=== PATIENT | male | born 1990 | race Caucasian/White ===

== ENCOUNTER → 2021-10-25 22:24 | Outpatient (REF) | payer MEDICAID, SELFPAY | LOC: HO.SL 22:24 | PROVIDERS: Visit Provider Registered Nurse | DX: G47.33 Obstructive sleep apnea (adult) (pediatric) (principal); R06.83 Snoring | CPT/HCPCS: 95811 ==

== ENCOUNTER → 2021-11-03 13:00 | Outpatient (BNVA) | payer MEDICAID, SELFPAY | PROVIDERS: PCP Registered Nurse; Visit Provider Nurse Practitioner Family | DX: G47.33 Obstructive sleep apnea (adult) (pediatric) (principal) | CPT/HCPCS: 99202 ==

== ENCOUNTER 2022-01-26 19:56 | Emergency (ER) | payer MEDICAID, SELFPAY ==
--- NOTE | 2022-01-26 | ECG_ITS ---
Test Reason : SEIZURES Blood Pressure : / mmHG Vent. Rate : 083 BPM Atrial Rate : 083 BPM P-R Int : 154 ms QRS Dur : 118 ms QT Int : 370 ms P-R-T Axes : 073 037 041 degrees QTc Int : 434 ms Normal sinus rhythm Non-specific intra-ventricular conduction delay Borderline ECG No previous ECGs available Referred By: Generic ED Physician Electronically Signed By:SHAYY JEAN MD
--- NOTE | ~2022-01-26 | XR_ITS ---
EXAMINATION: XR CHEST CLINICAL INFORMATION: Chest pain COMPARISON: None TECHNIQUE: Frontal view of the chest was obtained. FINDINGS: No significant abnormality is noted involving the heart, lungs, mediastinum, bony thorax or soft tissues. XR/XR chest 1V IMPRESSION: Unremarkable examination.
[2022-01-26 20:08] VITALS: BP 157/94; PULSE 96; RESP 20; TEMP 37.1; O2SAT 99; BMI 28.0
--- NOTE | 2022-01-26 20:19 | PC.NURSE ---
configuration management consultant Mayelin notified that pt. feels as though he's about to have a seizure. Taking pt. back to ED bed 14 and this RN putting an order in for EKG now
--- NOTE | 2022-01-26 20:22 | PC.NURSE ---
escorted to ED Bed 14. changed into hospital attire. EKG being obtained at this time. family member at bedside.
--- NOTE | 2022-01-26 20:58 | ED_ITS ---
HPI - Arrhythmia/Palpitations General Chief Complaint: Arrhythmia/Palpitations Stated Complaint: Dizzy, heart racing, epilepsy symptoms?? Time Seen by Provider: 01/26/22 20:57 Source: patient and wood flooring specialist Mode of arrival: ambulatory Limitations: no limitations History of Present Illness HPI narrative: 31 yo male with hx of seizures on vimpat and trileptal (compliant), HTN - has seizures monthly notes he has palpitations and fatigue/dizziness before seizures. He has been feeling like this for 3 days without an event. He also had some palpitations and chest pain for 3 days. This has happened before. He has n ot had a seizure. Denies missing medications, sleep deprivations, ETOH abuse. MD complaint: rapid heart beat and palpitations Onset (ago): day(s) (3) Duration: intermittent Severity: mild Context: occurred during rest Associated symptoms: chest pain Related Data Home Medications Medication Instructions Recorded Confirmed blood pressure test kit-medium 11/03/21 chlorthalidone 25 mg tablet 25 mg PO DAILY 11/03/21 cholecalciferol (vitamin D3) 50 50 mcg PO DAILY 11/03/21 mcg (2,000 unit) capsule lacosamide 150 mg tablet (Vimpat) 150 mg PO BID 11/03/21 lisinopril 20 mg tablet 20 mg PO DAILY 11/03/21 lisinopril 20 1 tab PO DAILY 11/03/21 mg-hydrochlorothiazide 12.5 mg tablet naproxen 500 mg tablet,delayed 500 mg PO BID 11/03/21 release (EC-Naproxen) oxcarbazepine 600 mg tablet 900 mg PO BID 11/03/21 sertraline 100 mg tablet 100 mg PO DAILY 11/03/21 Allergies Allergy/AdvReac Type Severity Reaction Status Date / Time No Known Allergies Allergy Verified 11/03/21 13:07 Review of Systems Review of Systems: Constitutional : No Weight loss, No Fever, No Chills ENT/Mouth : No sore throat, No Rhinorrhea Eyes: No Eye Pain, No Swelling Cardiovascular : pos Chest Pain, no SOB, no Dyspnea on Exertion, No Orthopnea, No Edema, pos Palpitations Respiratory : No Cough, No Sputum Gastrointestinal : no Nausea, No Vomiting, No Diarrhea, No abdominal Pain, No Hematochezia, No Melena Genitourinary : No Dysuria, No Urinary Frequency Musculoskeletal : No joint pain, No Myalgias, No Joint Swelling Skin : No Skin Lesions, No rash Neuro : No Weakness, No Numbness, No Dizziness, No Headache Psych : No Anxiety/Panic, No Depression Heme/Lymph: No Bruising, No Lymphadenopathy Endocrine : No Polyuria, No Polydipsia All other systems reviewed and are negative [facility] Past Medical History Attestation statement: The following information was validated with the patient. Medical History HTN (hypertension) CARON (obstructive sleep apnea) Seizures Surgical History No pertinent past surgical history Family History Family History (Updated 11/03/21 @ 13:12 by HAZEL Ngo) Mother Renal disease FH: cerebral aneurysm Sister Renal disease Maternal Grandmother Renal disease Diabetes mellitus Maternal Uncle Renal disease Father No problems noted. Social History Social History Household Members: Friend(s) Alcohol intake: never Patient Tobacco Use Status: Never used Tobacco Advance Directives: No Advance Directives Information Provided: No Current occupational status: unemployed Physical Exam Vital Signs: Vital Signs: Last Vital Signs Temp 98.7 F 01/26/22 20:08 Pulse 96 01/26/22 20:08 Resp 20 01/26/22 20:08 BP 157/94 H 01/26/22 20:08 Pulse Ox 99 01/26/22 20:08 O2 Del Method 01/26/22 20:08 BMI result Body Mass Index 28.0 Appearance: Alert. Oriented X3. No acute distress. Eyes: Pupils equal, round and reactive to light. ENT: Pharynx normal. Neck: Normal inspection. Neck supple. CVS: Normal heart rate and rhythm. Pulses normal. Respiratory: No respiratory distress. Breath sounds normal. Abdomen: Soft and -. Skin: Skin warm and dry. Normal skin color. Normal skin turgor. Extremities: No lower extremity edema. No calf ttp Neuro: Oriented X 3. No motor deficit. No sensory deficit. Course Course Course Narrative: workup negative at [facility] stable for DC feels better, no seizures while here MDM - Arrhythmia/Palpitations MDM Narrative Medical decision making narrative: 31 yo male with HTN, seizures here with chest pain, palpitations for 3 days, he is not in distress, appears comfortable - PERC negative, nonischemic EKG, obtain basic labs, PO ativan. Appears well no seizures recently. Atypical chest pain at this time - distal pulses intact doubt dissection. Lab Data Result diagrams: 01/26/22 21:50 01/26/22 21:50 Labs: Lab Results 01/26/22 01/26/22 01/26/22 Range/Units 21:50 21:50 21:50 WBC 10.0 (4.8-10.8) X10*3/uL RBC 4.92 (4.60-5.80) X10*6/uL Hgb 14.5 (14.0-18.0) g/dl Hct 43.1 (42.0-52.0) % MCV 87.6 (80.0-98.0) fL MCH 29.5 (27.0-33.0) pg MCHC 33.6 (31.0-36.0) g/dl RDW 12.9 (11.0-16.0) % Plt Count 244 (160-400) X10*3/uL MPV 10.8 (9.4-12.4) fL Immature Gran % (Auto) 0.2 (0.0-0.4) % Neut % (Auto) 68.7 (45-73) % Lymph % (Auto) 22.8 (20-40) % Power % (Auto) 7.6 (2-11) % Eos % (Auto) 0.3 (0-4) % Baso % (Auto) 0.4 (0-2) % Lymph # (Auto) 2.3 (1.2-4.9) X10*3/uL Power # (Auto) 0.8 (0.1-1.2) X10*3/uL Eos # (Auto) 0.0 (0.0-0.4) X10*3/uL Baso # (Auto) 0.0 (0.0-0.2) X10*3/uL Abs Immat Gran (auto) 0.02 (0.00-0.03) X10*3/uL Absolute Neuts (auto) 6.8 (2.0-8.3) x10*3/uL Absolute Nucleated RBC 0.000 (0.0-0.012) X10*3/uL Nucleated RBC % (auto) 0.0 (0.0-0.2) /100WBC Sodium 142 (135-145) mmol/L Potassium 4.1 (3.3-5.1) mmol/L Chloride 105 (96-108) mmol/L Carbon Dioxide 27 (22-29) mmol/L Anion Gap 14 (12-20) BUN 14 (9-16) mg/dL Creatinine 0.86 (0.5-1.4) mg/dL Estim Creat Clear Calc 146.7 Estimated GFR > 60 Random Glucose 93 (60-115) mg/dL Calcium 9.4 (8.4-10.2) mg/dL Magnesium 1.8 (1.6-2.6) mg/dL Troponin I High Sens < 3.5 (<3.5-35.0) ng/L COVID-19 ([facility]) (Negative) COVID-19 Clin Com 01/26/22 Range/Units 21:50 WBC (4.8-10.8) X10*3/uL RBC (4.60-5.80) X10*6/uL Hgb (14.0-18.0) g/dl Hct (42.0-52.0) % MCV (80.0-98.0) fL MCH (27.0-33.0) pg MCHC (31.0-36.0) g/dl RDW (11.0-16.0) % Plt Count (160-400) X10*3/uL MPV (9.4-12.4) fL Immature Gran % (Auto) (0.0-0.4) % Neut % (Auto) (45-73) % Lymph % (Auto) (20-40) % Power % (Auto) (2-11) % Eos % (Auto) (0-4) % Baso % (Auto) (0-2) % Lymph # (Auto) (1.2-4.9) X10*3/uL Power # (Auto) (0.1-1.2) X10*3/uL Eos # (Auto) (0.0-0.4) X10*3/uL Baso # (Auto) (0.0-0.2) X10*3/uL Abs Immat Gran (auto) (0.00-0.03) X10*3/uL Absolute Neuts (auto) (2.0-8.3) x10*3/uL Absolute Nucleated RBC (0.0-0.012) X10*3/uL Nucleated RBC % (auto) (0.0-0.2) /100WBC Sodium (135-145) mmol/L Potassium (3.3-5.1) mmol/L Chloride (96-108) mmol/L Carbon Dioxide (22-29) mmol/L Anion Gap (12-20) BUN (9-16) mg/dL Creatinine (0.5-1.4) mg/dL Estim Creat Clear Calc Estimated GFR Random Glucose (60-115) mg/dL Calcium (8.4-10.2) mg/dL Magnesium (1.6-2.6) mg/dL Troponin I High Sens (<3.5-35.0) ng/L COVID-19 ([facility]) Negative (Negative) COVID-19 Clin Com See Note ECG Data Attestation: I personally reviewed and interpreted this ECG as follows: ECG interpretation date: 01/26/22 ECG interpretation time: 21:16 Interpretation: Rate: 83 Rhythm: NSR [place]: normal Normal P waves. Normal CHIKIS. slightly widened QRS complex. ST T wave : normal no SHERWIN normal qTC: prior studies: no acute ischemia The study has been interpreted contemporaneously by me. . Discharge Plan Discharge Clinical Impression: Palpitations, Atypical chest pain Patient Disposition: Home, Self-Care Instructions: Heart Palpitations (ED), Chest Pain (ED) Additional Instructions: return to ED for any worsening symptoms or concerns NEGATIVE COVID Prescriptions: No Action lacosamide [Vimpat] 150 mg tablet 150 mg PO BID cholecalciferol (vitamin D3) 50 mcg (2,000 unit) capsule 50 mcg PO DAILY (DME) blood pressure test kit-medium Kit See Rx Instructions .ROUTE Rx Instructions: As directed oxcarbazepine 600 mg tablet 900 mg PO BID naproxen [EC-Naproxen] 500 mg tablet,delayed release (DR/EC) 500 mg PO BID chlorthalidone 25 mg tablet 25 mg PO DAILY lisinopril 20 mg tablet 20 mg PO DAILY sertraline 100 mg tablet 100 mg PO DAILY lisinopril-hydrochlorothiazide 20-12.5 mg tablet 1 tab PO DAILY Referrals: Physician,Unknown J [Primary Care Provider] - (primary care on Saturday if not better) Print Language: [place]
[2022-01-26] MEDS: LORazepam 1 MG TABLET 2 MG PO (21:33)
[2022-01-26 21:56] LABS: MANUAL DIFF FLAG NO
[2022-01-26 21:57] LABS: Basophils Percent Auto 0.4 % (0-2); Eosinophils Percent Auto 0.3 % (0-4); Hematocrit 43.1 % (42.0-52.0); Hemoglobin 14.5 g/dl (14.0-18.0); Imm Gran Abs Auto 0.02 X10*3/uL (0.00-0.03); Imm Gran Pct Auto 0.2 % (0.0-0.4); Lymphocytes Absolute Auto 2.3 X10*3/uL (1.2-4.9); Lymphocytes Percent Auto 22.8 % (20-40); Mean Corpuscular HGB Conc 33.6 g/dl (31.0-36.0); Mean Corpuscular Hemoglobin 29.5 pg (27.0-33.0); Mean Corpuscular Volume 87.6 fL (80.0-98.0); Mean Platelet Volume 10.8 fL (9.4-12.4); Monocytes Absolute Auto 0.8 X10*3/uL (0.1-1.2); Monocytes Percent Auto 7.6 % (2-11); Neutrophils Absolute Auto 6.8 x10*3/uL (2.0-8.3); Neutrophils Percent Auto 68.7 % (45-73); Platelet Count 244 X10*3/uL (160-400); Red Blood Count 4.92 X10*6/uL (4.60-5.80); Red Cell Distribution Width 12.9 % (11.0-16.0)
[2022-01-26 22:14] LABS: COVID-19 Test Negative (Negative)
[2022-01-26 22:15] LABS: Anion Gap 14 (12-20); Blood Urea Nitrogen 14 mg/dL (9-16); Calcium 9.4 mg/dL (8.4-10.2); Carbon Dioxide 27 mmol/L (22-29); Chloride 105 mmol/L (96-108); Creatinine Clr Calc Pharmacy 146.7; Estimated Glomerular Filt Rate > 60; Glucose Random 93 mg/dL (60-115); Magnesium 1.8 mg/dL (1.6-2.6); Potassium 4.1 mmol/L (3.3-5.1); Sodium 142 mmol/L (135-145)
[2022-01-26 22:21] LABS: Troponin-I High Sensitivity < 3.5 ng/L (<3.5-35.0)
[2022-01-26 22:44] VITALS: BP 135/88; PULSE 73; RESP 13; TEMP 36.6; O2SAT 96
== END 2022-01-26 22:56 | disposition home or self-care (01) ==
PROVIDERS: Emergency Provider Emergency Medicine
DX: R56.9 Unspecified convulsions (principal); R42 Dizziness and giddiness; R07.89 Other chest pain; R00.2 Palpitations; Z20.822 Contact with and (suspected) exposure to COVID-19; Z79.899 Other long term (current) drug therapy
CPT/HCPCS: 71045; 80048; 83735; 84484; 85025; 87635; 93005; 99283; 99284